=== PATIENT | male | born 1955 | race Caucasian/White ===

== ENCOUNTER 2018-05-29 13:45 | Emergency (ER) | payer MEDICARE, OTHER ==
[2018-05-29] MEDS ORDERED: Sodium Chloride 0.9% 10 ML Syringe FLUSH PRN (14:01)
--- NOTE | 2018-05-29 14:07 | EDM.PDOC ---
ED HPI GENERAL MEDICAL PROBLEM - General Chief Complaint: Cardiovascular Problem Stated Complaint: CHEST PAIN AND TIGHTNESS Time Seen by Provider: 05/29/18 13:49 Source of Information: Reports: Patient History Limitations: Reports: No Limitations - History of Present Illness INITIAL COMMENTS - FREE TEXT/NARRATIVE: 62-year-old male presents to the ED for evaluation of recurrent intermittent central chest discomfort/pressures for the last 2-3 months worse the last couple of days. Has a strong family history of heart disease. Father from an aortic aneurysm rupture. He's had a brother from acute myocardial infarction although he was a smoker. He reports he had no heart problems when he was tested before back surgery 2 years ago. He has never been a smoker. His blood pressure is gone up tremendously with 100 pound weight gain since back surgery since he's not been able to walk. He'll short of breath. Denies cough or sputum production. Denies orthopnea or PND. Has no known history of coronary disease. Chest pain does not necessarily come on with any form of exertion. Of note the patient is very immobile because he is just learning how to walk again. He states he sometimes test exerted himself very hard to have a bowel movement since he had low back surgery almost to the point of passing out which will sometimes precipitate chest discomfort. Onset: Unknown/Unsure (Is been having intermittent central chest discomfort off and on for the last 2 months or more.) Duration: Chronic, Getting Worse (He also is getting worse the last couple of days), Intermittent, Waxing/Waning Location: Reports: Chest (Antral chest discomfort without feeling of need to burp or belch. Rarely gets heartburn. Never uses Tums or Rolaids.) Quality: Reports: Pressure, Other Severity: Mild Improves with: Reports: None Worsens with: Reports: None Context: Denies: Activity, Exercise, Lifting, Sick Contact, Trauma, Other Associated Symptoms: Reports: Chest Pain, Shortness of Breath, Weakness (Lower extremities.). Denies: Confusion, Cough, Diaphoresis, Fever/Chills, Headaches, Loss of Appetite, Malaise, Nausea/Vomiting, Rash, Seizure, Syncope (Sometimes) Treatments FIRST ASSIST: Reports: Other (see below) (Only medications as prescribed) - Related Data Allergies Allergy/AdvReac Type Severity Reaction Status Date / Time No Known Allergies Allergy Verified 05/29/18 13:58 Home Meds: Home Meds Naproxen 500 mg PO BID PRN 09/17/15 [History] atorvaSTATin [Lipitor] 20 mg PO DAILY 09/17/15 [History] Amitriptyline [Elavil] 25 mg PO DAILY 02/27/18 [History] traZODone HCl [Trazodone HCl] 100 mg PO BEDTIME PRN 02/27/18 [History] Aspirin [Low Dose Aspirin EC] 81 mg PO DAILY 02/28/18 [History] Brimonidine/Timolol [Combigan 0.2%/0.5% Ophth Soln] 1 drop EYEBOTH BID 05/29/18 [History] Dicyclomine [Bentyl] 20 mg IM Q6H PRN #20 amp 05/29/18 [Rx] Fish Oil/[place]-3 Fatty Acids [Fish Oil 1,000 MG] 0 mg PO DAILY 05/29/18 [History ] Multivit-Min/FA/Lycopen/Lutein [Centrum Silver Men Tablet] 1 tab PO DAILY [History] Past Medical History HEENT History: Reports: Cataract Cardiovascular History: Reports: High Cholesterol, Hypertension Respiratory History: Reports: Sleep Apnea (CPAP) Gastrointestinal History: Reports: Chronic Constipation (pt states d/t cauda equina syndrome) Genitourinary History: Reports: None Musculoskeletal History: Reports: Other (See Below) Other Musculoskeletal History: spondylolisthesis of lumbar region, left leg pain , lumbar pain Other Neuro History: Patient is essentially paraplegic since having lumbar spine surgery. Apparently there was a neck in the thecal sac which caused a cerebrospinal fluid leak and prolonged compression of the cauda equina. This left him with no feeling in his lower extremities and these just now starting to learn how to walk. Twice he can stand and shuffle only. Psychiatric History: Reports: Anxiety Endocrine/Metabolic History: Reports: Obesity/BMI 30+ - Past Surgical History Neurological Surgical History: Reports: Spinal Fusion (L4-5 S-1) Musculoskeletal Surgical History: Reports: Shoulder Replacement Social & Family History - Living Situation & Occupation Living situation: Reports: Single Occupation: Disabled ED ROS GENERAL - Review of Systems Review Of Systems: See Below Constitutional: Reports: Weight Gain (He states she's gained over 100 pounds in the last year since having low back surgery with paralysis of his lower extremities). Denies: Fever, Chills, Malaise, Weakness, Fatigue, Weight Loss HEENT: Reports: No Symptoms Respiratory: Reports: Shortness of Breath. Denies: Wheezing, Pleuritic Chest Pain, Cough Cardiovascular: Reports: Chest Pain (Intermittent central chest discomfort which he describes as a pressure intermittently.), Blood Pressure Problem, Dyspnea on Exertion, Edema. Denies: Claudication (Blood pressure has been elevated since he's gained 100 pounds of weight.), Lightheadedness, Orthopnea, Palpitations GI/Abdominal: Reports: Abdominal Pain (Abdominal pressure discomfort since he's gained 100 pounds of weight. Feels is pushing up on his chest.) : Reports: Frequency, Incontinence, Other (He has urinary frequency with incontinence of urine. This is since his low back surgery with cauda equina syndrome from compression of cerebral spinal fluid postoperatively.) Musculoskeletal: Reports: Other (Patient is essentially paraplegic he is learning how to walk again in therapy. 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 This resulted in paralysis of both lower extremities. Erectile dysfunction. Incontinence of urine cultures managing his bowels. Still has continence of the bowel.) Neurological: Reports: Paresthesia, Difficulty Walking (Learning how to walk again now.) Psychiatric: Reports: Depression Hematologic/Lymphatic: Reports: No Symptoms (Due to current medical problems) Immunologic: Reports: No Symptoms ED EXAM, GENERAL - Physical Exam Exam: See Below Exam Limited By: No Limitations General Appearance: Alert, WD/WN, No Apparent Distress Eye Exam: Bilateral Eye: Normal Inspection Neck: Normal Inspection, Supple, Non-Tender, Full Range of Motion. No: Lymphadenopathy (L), Lymphadenopathy (R) Respiratory/Chest: No Respiratory Distress, Lungs Clear, Normal Breath Sounds, Chest Non-Tender, Respiratory Distress Cardiovascular: Normal Peripheral Pulses, Regular Rate, Rhythm, No Gallop, No Murmur, No Rub Peripheral Pulses: 2+: Posterior Tibial (L), Posterior Tibial (R), Dorsalis Pedis (L), Dorsalis Pedis (R) GI/Abdominal: Normal Bowel Sounds, Soft, Non-Tender, No Organomegaly, No Abnormal Bruit, No Mass, Pelvis Stable, Other (Surgical scars of the abdomen. The abdomen is grossly obese. This limits ability to palpate any solid organs. Minimal) Rectal (Males) Exam: Other (He states his rectal tone is normal but he has to stimulate his bowels to work. He takes Citroma and MiraLAX daily to make sure that his stools stays loose or soft to prevent constipation) Back Exam: Other (Chronic low back pain) Extremities: Other (Patient is essentially paraplegic in his lower extremities. He has lack of sensation in his feet.). No: Pedal Edema Neurological: Other (Essentially paraplegic. He walks with a shuffling gait. He has very poor sensation to light touch or pinprick in either lower extremity and on complete absence of proprioception.) Psychiatric: Normal Affect, Normal Mood Skin Exam: Warm, Dry, Intact, Normal Color, No Rash EKG INTERPRETATION EKG Date: 05/29/18 Time: 13:58 Rhythm: NSR Rate (Beats/Min): 64 [place]: Other (Nonspecific intraventricular conduction delay.) P-Wave: Present QRS: Other (Early R-wave transition suggesting right ventricular hypertrophy versus septal hypertrophy pattern.) ST-T: Other (T-wave flattening in lead 3 and aVF.) QT: Prolonged (Minimally prolonged.) EKG Interpretation Comments: Abnormal ECG Course - Vital Signs Last Recorded V/S: Last Vital Signs Temp 36.1 C 05/29/18 13:51 Pulse 80 05/29/18 13:51 Resp 20 05/29/18 13:51 BP 147/94 H 05/29/18 13:51 Pulse Ox 97 05/29/18 13:51 - Orders/Labs/Meds Orders: Active Orders 24 hr Category Date Time Status EKG Documentation Completion [RC] STAT Care 05/29/18 13:59 Active Peripheral IV Care [RC] . DIRECTED Care 05/29/18 14:01 Active Sodium Chloride 0.9% [Normal Saline] 100 ml Med 05/29/18 15:30 Active IV ASDIRECTED Sodium Chloride 0.9% [Saline Flush] Med 05/29/18 14:01 Active 10 ml FLUSH ASDIRECTED PRN Peripheral IV Insertion Adult [OM.PC] Stat Oth 05/29/18 14:01 Ordered Medication Orders Sodium Chloride (Normal Saline) 100 mls @ 80 mls/hr IV ASDIRECTED [facility] Last Admin: 05/29/18 15:31 Dose: 80 mls/hr Sodium Chloride (Saline Flush) 10 ml FLUSH ASDIRECTED PRN PRN Reason: Keep Vein Open Labs: Laboratory Tests 05/29/18 05/29/18 05/29/18 Range/Units 14:05 14:05 14:05 WBC 8.25 (4.23-9.07) K/mm3 RBC 5.02 (4.63-6.08) M/mm3 Hgb 15.9 (13.7-17.5) gm/L Hct 45.7 (40.1-51.0) % MCV 91.0 (79.0-92.2) fl MCH 31.7 (25.7-32.2) pg MCHC 34.8 (32.2-35.5) g/dl RDW Std Deviation 42.7 (35.1-43.9) fL Plt Count 246 (163-337) K/mm3 MPV 9.1 L (9.4-12.3) fl Neutrophils % (Manual) 59 (40-60) % Band Neutrophils % 0 (0-10) % Lymphocytes % (Manual) 40 (20-40) % Atypical Lymphs % 0 % Monocytes % (Manual) 1 L (2-10) % Eosinophils % (Manual) 0 L (0.8-7.0) % Basophils % (Manual) 0 L (0.2-1.2) Platelet Estimate Adequate RBC Morph Comment Normal PT 10.7 (9.5-12.1) SECONDS INR 0.98 D-Dimer, Quantitative (0.19-0.50) mg/L Sodium 138 (136-145) mEq/L Potassium 4.3 (3.5-5.1) mEq/L Chloride 104 (98-107) mEq/L Carbon Dioxide 25 (21-32) mEq/L Anion Gap 13.3 (5-15) BUN 20 H (7-18) mg/dL Creatinine 0.9 (0.7-1.3) mg/dL Est Cr Clr Drug Dosing 80.58 mL/min Estimated GFR (MDRD) > 60 (>60) mL/min BUN/Creatinine Ratio 22.2 H (14-18) Glucose 127 H (80-115) mg/dL Calcium 8.9 (8.5-10.1) mg/dL Total Bilirubin 0.6 (0.2-1.0) mg/dL AST 28 (15-37) U/L ALT 48 (16-63) U/L Alkaline Phosphatase 113 (46-116) U/L CK-MB (CK-2) 2.7 (0-3.6) ng/ml Troponin I < 0.017 (0.00-0.056) ng/mL C-Reactive Protein 1.2 H* (<1.0) mg/dL NT-Pro-B Natriuret Pep (0-125) pg/mL Total Protein 7.5 (6.4-8.2) g/dl Albumin 3.9 (3.4-5.0) g/dl Globulin 3.6 gm/dL Albumin/Globulin Ratio 1.1 (1-2) TSH 3rd Generation (0.358-3.74) uIU/mL Urine Color (Yellow) Urine Appearance (Clear) Urine pH (5.0-8.0) Ur Specific [place] (1.005-1.030) Urine Protein (Negative) Urine Glucose (UA) (Negative) Urine Ketones (Negative) Urine Occult Blood (Negative) Urine Nitrite (Negative) Urine Bilirubin (Negative) Urine Urobilinogen (0.2-1.0) Ur Leukocyte Esterase (Negative) Urine RBC (0-5) /hpf Urine WBC (0-5) /hpf Ur Epithelial Cells (0-5) /hpf Urine Bacteria (FEW) /hpf Urine Mucus (FEW) /hpf 05/29/18 05/29/18 05/29/18 Range/Units 14:05 14:05 14:05 WBC (4.23-9.07) K/mm3 RBC (4.63-6.08) M/mm3 Hgb (13.7-17.5) gm/L Hct (40.1-51.0) % MCV (79.0-92.2) fl MCH (25.7-32.2) pg MCHC (32.2-35.5) g/dl RDW Std Deviation (35.1-43.9) fL Plt Count (163-337) K/mm3 MPV (9.4-12.3) fl Neutrophils % (Manual) (40-60) % Band Neutrophils % (0-10) % Lymphocytes % (Manual) (20-40) % Atypical Lymphs % % Monocytes % (Manual) (2-10) % Eosinophils % (Manual) (0.8-7.0) % Basophils % (Manual) (0.2-1.2) Platelet Estimate RBC Morph Comment PT (9.5-12.1) SECONDS INR D-Dimer, Quantitative 2.20 H (0.19-0.50) mg/L Sodium (136-145) mEq/L Potassium (3.5-5.1) mEq/L Chloride (98-107) mEq/L Carbon Dioxide (21-32) mEq/L Anion Gap (5-15) BUN (7-18) mg/dL Creatinine (0.7-1.3) mg/dL Est Cr Clr Drug Dosing mL/min Estimated GFR (MDRD) (>60) mL/min BUN/Creatinine Ratio (14-18) Glucose (80-115) mg/dL Calcium (8.5-10.1) mg/dL Total Bilirubin (0.2-1.0) mg/dL AST (15-37) U/L ALT (16-63) U/L Alkaline Phosphatase (46-116) U/L CK-MB (CK-2) (0-3.6) ng/ml Troponin I (0.00-0.056) ng/mL C-Reactive Protein (<1.0) mg/dL NT-Pro-B Natriuret Pep 22 (0-125) pg/mL Total Protein (6.4-8.2) g/dl Albumin (3.4-5.0) g/dl Globulin gm/dL Albumin/Globulin Ratio (1-2) TSH 3rd Generation 1.615 (0.358-3.74) uIU/mL Urine Color (Yellow) Urine Appearance (Clear) Urine pH (5.0-8.0) Ur Specific [place] (1.005-1.030) Urine Protein (Negative) Urine Glucose (UA) (Negative) Urine Ketones (Negative) Urine Occult Blood (Negative) Urine Nitrite (Negative) Urine Bilirubin (Negative) Urine Urobilinogen (0.2-1.0) Ur Leukocyte Esterase (Negative) Urine RBC (0-5) /hpf Urine WBC (0-5) /hpf Ur Epithelial Cells (0-5) /hpf Urine Bacteria (FEW) /hpf Urine Mucus (FEW) /hpf 05/29/18 Range/Units 14:25 WBC (4.23-9.07) K/mm3 RBC (4.63-6.08) M/mm3 Hgb (13.7-17.5) gm/L Hct (40.1-51.0) % MCV (79.0-92.2) fl MCH (25.7-32.2) pg MCHC (32.2-35.5) g/dl RDW Std Deviation (35.1-43.9) fL Plt Count (163-337) K/mm3 MPV (9.4-12.3) fl Neutrophils % (Manual) (40-60) % Band Neutrophils % (0-10) % Lymphocytes % (Manual) (20-40) % Atypical Lymphs % % Monocytes % (Manual) (2-10) % Eosinophils % (Manual) (0.8-7.0) % Basophils % (Manual) (0.2-1.2) Platelet Estimate RBC Morph Comment PT (9.5-12.1) SECONDS INR D-Dimer, Quantitative (0.19-0.50) mg/L Sodium (136-145) mEq/L Potassium (3.5-5.1) mEq/L Chloride (98-107) mEq/L Carbon Dioxide (21-32) mEq/L Anion Gap (5-15) BUN (7-18) mg/dL Creatinine (0.7-1.3) mg/dL Est Cr Clr Drug Dosing mL/min Estimated GFR (MDRD) (>60) mL/min BUN/Creatinine Ratio (14-18) Glucose (80-115) mg/dL Calcium (8.5-10.1) mg/dL Total Bilirubin (0.2-1.0) mg/dL AST (15-37) U/L ALT (16-63) U/L Alkaline Phosphatase (46-116) U/L CK-MB (CK-2) (0-3.6) ng/ml Troponin I (0.00-0.056) ng/mL C-Reactive Protein (<1.0) mg/dL NT-Pro-B Natriuret Pep (0-125) pg/mL Total Protein (6.4-8.2) g/dl Albumin (3.4-5.0) g/dl Globulin gm/dL Albumin/Globulin Ratio (1-2) TSH 3rd Generation (0.358-3.74) uIU/mL Urine Color Yellow (Yellow) Urine Appearance Clear (Clear) Urine pH 6.0 (5.0-8.0) Ur Specific [place] 1.025 (1.005-1.030) Urine Protein Negative (Negative) Urine Glucose (UA) Negative (Negative) Urine Ketones Negative (Negative) Urine Occult Blood Negative (Negative) Urine Nitrite Negative (Negative) Urine Bilirubin Negative (Negative) Urine Urobilinogen 0.2 (0.2-1.0) Ur Leukocyte Esterase Negative (Negative) Urine RBC 0-5 (0-5) /hpf Urine WBC Not seen (0-5) /hpf Ur Epithelial Cells Not seen (0-5) /hpf Urine Bacteria Rare (FEW) /hpf Urine Mucus Few (FEW) /hpf Meds: Medications Generic Name Dose Route Start Last Admin Trade Name Freq PRN Reason Stop Dose Admin Sodium Chloride 100 mls @ 80 mls/hr 05/29/18 15:30 05/29/18 15:31 Normal Saline IV 80 mls/hr ASDIRECTED MAVIS Administration Sodium Chloride 10 ml 05/29/18 14:01 Saline Flush FLUSH ASDIRECTED PRN Keep Vein Open Discontinued Medications Generic Name Dose Route Start Last Admin Trade Name Freq PRN Reason Stop Dose Admin Iopamidol 100 ml 05/29/18 15:26 05/29/18 15:28 Isovue-370 (76%) IVPUSH 05/29/18 15:27 100 ml ONETIME ONE Administration - Radiology Interpretation Free Text/Narrative:: 62-year-old male presents to the ED for evaluation of intermittent central chest pains which she described as pressure discomfort. Been having this kind of pain off and on for the better part of 2 months. Patient is not mobile because of paraplegia of his lower extremities postop L-spine surgery wears thecal sac was neck and he developed significant cerebral spinal fluid compression of the cauda equina which produced paralysis of his lower extremities and incontinence of urine and erectile dysfunction and difficulties defecating. He is currently learning how to walk again in physiotherapy. Has a strong family history of heart disease with his father dying from an aneurysm of the thoracic aorta. One brother previously from acute myocardial infarction but he was a smoker. This patient states he has never smoked cigarettes. ECG is abnormal showing evidence of a nonspecific intraventricular conduction delay left axis deviation left anterior fascicular block pattern and early R-wave transition suggesting right ventricular hypertrophy versus septal hypertrophy pattern. Risk is therefore DVT because he is not very mobile with his lower extremities. He reports his blood pressure is elevated but it's 147/ 97 initially. Sats are 97% on room air. Plan he will have one view chest x-ray done. ECG of course. Routine labs including cardiac markers. - Re-Assessments/Exams Free Text/Narrative Re-Assessment/Exam: 05/29/18 14:38 chest x-ray done portably reveals marked cardiomegaly. No pleural effusions mild diffuse vascular congestion pattern 05/29/18 15:35 Labs are back revealing a normal white count at 8.25. 59% neutrophils and no band cells reported. Hemoglobin is 15.9 with hematocrit of 45.7. Platelet count 246,000. PT is 10.7 with an INR of 0.98. Of note d-dimer did come back mildly elevated at 2.20. Sodium is 138 with a potassium of 4.3. Chloride 104 with a bicarbonate of 25. And a gap is 13.3 with a BUN of 20. Creatinine is 0.9 with a GFR greater than 60. Glucose is 127. Calcium is 8.9. Bilirubin is 0.6. AST is 28 with an ALT of 48. Alk phosphatase 113 CK-MB fraction is 2.7. Troponin I is less than 0.017. C-reactive protein 1.2 BNP is normal at 22. Total protein 7.5 with an albumin fraction of 3.9. TSH is normal at 1.615. Due to the elevated d-dimer in isolation and the fact that he is essentially immobile he will have a CT pulmonary and gram performed since he is normal renal function. 05/29/18 16:20: CT pulmonary angiogram was carried out and no evidence of pulmonary embolism was identified. Aorta shows no aneurysm. Mediastinum shows no adenopathy. No pericardial thickening is identified. Small portion of the visualized upper abdominal structures show fatty infiltration within the liver. No acute parenchymal changes. No pleural effusions. I suspect the patient's discomfort in his chest is likely from hiatal hernia due to the amount of weight he has gained 100 pounds over the last 2 years. He still need requires further investigation by way of an echocardiogram and a lexicon stress test. He then needs follow-up with Dr. Giles --umbrella supervisor to seen him prior to his spinal surgery. It will be up to him as to whether or not angiogram is required. At this time I suspect his current chest pains are noncardiac in origin likely secondary to hiatal hernia. I'm going to give him Bentyl 20 mg tablets to be used when necessary when he develops chest discomfort as it often occurs when he is lying down flat. He asked about nitroglycerin but I do not feel this is indicated. 20 tablets were provided. Departure - Departure Time of Disposition: 16:42 Disposition: Home, Self-Care 01 Condition: Fair Clinical Impression: Non-cardiac chest pain, Hiatal hernia Prescriptions: Dicyclomine [Bentyl] 20 mg IM Q6H PRN #20 amp PRN Reason: Epigastric/lower chest pain Instructions: Hernia, Adult, [id number] Referrals: Heydi Huff PA-C [Primary Care Provider] - Forms: ED Department Discharge Additional Instructions: Evaluation in the emergency department today in regards to persistent and recurrent central chest discomfort over the last 2 months. It mostly comes on at rest or when you're lying down. Cardiac workup was therefore carried out. The ECG tracing suggests that there may be some enlargement of the right side of your heart as compared to the left. This could mean that the septum of the heart has enlarged over time possibly due to what pressure issues. There was no extra fluid buildup in your lungs. The D-dimer test came back positive at 2.20 which suggested that there might be a possibility of blood clot in the lung and therefore CT of her chest was carried out with dye called a CT pulmonary angiogram. This proved to be negative for any blood clots in the lungs. Us to x- ray suggests the heart is mild to moderately enlarged. Therefore further investigations are required by way of an echocardiogram of your heart and an ECG stress test our lexicon stress test which can be done while you are seated since you cannot walk on a treadmill. I think your chest pains are likely GI related due to the weight gain that you have expressed over the last 2 years. I suspect her stomach is herniating up into her chest behind her heart to be you current symptoms. You have the chest pains next time to take Bentyl 20 mg by mouth and this could be repeated every 6 hours as needed. - My Orders Last 24 Hours: My Active Orders 05/29/18 13:59 EKG Documentation Completion [RC] STAT 05/29/18 14:01 Peripheral IV Care [RC] . DIRECTED Sodium Chloride 0.9% [Saline Flush] 10 ml FLUSH ASDIRECTED PRN Peripheral IV Insertion Adult [OM.PC] Stat 05/29/18 15:30 Sodium Chloride 0.9% [Normal Saline] 100 ml IV ASDIRECTED - Assessment/Plan Last 24 Hours: My Active Orders 05/29/18 13:59 EKG Documentation Completion [RC] STAT 05/29/18 14:01 Peripheral IV Care [RC] . DIRECTED Sodium Chloride 0.9% [Saline Flush] 10 ml FLUSH ASDIRECTED PRN Peripheral IV Insertion Adult [OM.PC] Stat 05/29/18 15:30 Sodium Chloride 0.9% [Normal Saline] 100 ml IV ASDIRECTED
--- NOTE | 2018-05-29 15:07 | CR ---
Chest: Portable view of the chest was obtained. Comparison: No prior chest x-ray. Heart is enlarged. Slight tortuosity of the thoracic aorta is seen. Lungs are clear with no acute parenchymal change. Incidental note of prosthetic right shoulder. Impression: 1. Mild cardiomegaly. Nothing acute is seen. Diagnostic code #2
[2018-05-29] MEDS: Iopamidol 755 Mg/ML 100 ML Bottle IVPUSH ONE (15:28)
[2018-05-29] MEDS: Sodium Chloride 0.9% 100 ML IV SCH (15:31)
--- NOTE | 2018-05-29 15:49 | CT ---
CT chest Technique: Multiple axial sections through the chest were obtained. Intravenous contrast was utilized. Study has been performed as a pulmonary angiogram protocol. Comparison: Prior chest x-ray of performed earlier on the same day (2:11 PM). Findings: Pulmonary arteries are moderately well-opacified. No filling defects are seen to indicate pulmonary embolism. Aorta shows no aneurysm. Mediastinum shows no adenopathy. No pericardial thickening is seen. Small portion of the visualized upper abdominal structures shows fatty infiltration within the liver. Lungs are clear. No acute parenchymal change is seen. No pleural effusions are noted. Bone window settings were reviewed which show no acute osseous abnormality. Scattered degenerative change is seen throughout the spine. Impression: 1. No findings of pulmonary embolism. 2. Other incidental findings. Nothing acute is seen on CT study of the chest. Diagnostic code #2
[2018-05-29 18:00] VITALS: BP 159/71
== END 2018-05-29 17:10 | disposition home or self-care (01) ==
LOC: JD.ED 13:45
DX: R07.89 Other chest pain (principal); K44.9 Diaphragmatic hernia without obstruction or gangrene; I10 Essential (primary) hypertension; E78.00 Pure hypercholesterolemia, unspecified; F41.9 Anxiety disorder, unspecified; Z79.899 Other long term (current) drug therapy
CPT/HCPCS: 36415; 71045; 71275; 80053; 81001; 82553; 83880; 84443; 84484; 85007; 85027; 85379; 85610; 86140; 93005; 99285; J7030; Q9967; 93010

== ENCOUNTER 2022-11-20 10:58 | Emergency (ER) | payer MEDICARE, OTHER ==
[2022-11-20] MEDS ORDERED: HYDROmorphone 1 MG/ML Syringe IM ONE (11:37)
[2022-11-20 19:11] VITALS: BP 122/77; PULSE 80
== END 2022-11-20 14:20 | disposition home or self-care (01) ==
LOC: JD.ED 10:58
DX: G54.8 Other nerve root and plexus disorders (principal); E78.00 Pure hypercholesterolemia, unspecified; I10 Essential (primary) hypertension; E66.9 Obesity, unspecified; Z68.30 Body mass index [BMI] 30.0-30.9, adult; Z79.82 Long term (current) use of aspirin; Z79.899 Other long term (current) drug therapy
CPT/HCPCS: 72148; 96372; 99283; J1170; 99284